=== PATIENT | female | born 1960 | race Hispanic/Latino ===

== ENCOUNTER 2016-07-26 11:59 | Emergency (ER) | payer MEDICAID ==
[2016-07-26 12:05] VITALS: BMI 38.9
[2016-07-26 12:06] VITALS: PULSE 78; RESP 19; TEMP 97.5; O2SAT 96
--- NOTE | 2016-07-26 13:34 | RAD ---
PROCEDURE: Right Knee Radiographs. HISTORY: pain COMPARISON: None. FINDINGS: BONES: There is no acute fracture or bone destruction. Bone alignment and mineralization are normal. There is a small superior patellar enthesophyte. JOINTS: Normal. No osteoarthritis. JOINT EFFUSION: There is small suprapatellar joint effusion. OTHER FINDINGS: None. IMPRESSION: No acute fracture or dislocation. Small suprapatellar joint effusion.
[2016-07-26 14:10] VITALS: BP 152/86
--- NOTE | 2016-07-26 14:19 | ED PDOC ---
Lower Extremity Pain/Injury Time Seen by Provider: 07/26/16 12:23 Chief Complaint (Nursing): Lower Extremity Problem/Injury Chief Complaint (Provider): knee pain History Per: Patient Additional Complaint(s): pt c/o R knee pain since moving apartments this . no fall or injury. no fever, redness, numbness, weakness distally or other joint aches. Past Medical History Reviewed: Historical Data, Nursing Documentation, Vital Signs Vital Signs: Last Vital Signs Temp 97.5 F L 07/26/16 12:05 Pulse 78 07/26/16 12:05 Resp 19 07/26/16 12:05 BP 152/86 H 07/26/16 14:10 Pulse Ox 96 07/26/16 12:05 - Medical History PMH: No Chronic Diseases - Surgical History Surgical History: Tonsillectomy - Family History Family History: States: No Known Family Hx - Social History Current smoker - smoking cessation education provided: No Alcohol: None Drugs: Denies - Home Medications Home Medications: Ambulatory Orders Medication Instructions Recorded Naproxen [Naprosyn Tab] 375 mg PO BID #20 tab 07/26/16 - Allergies Allergies/Adverse Reactions: Allergies Allergy/AdvReac Type Severity Reaction Status Date / Time No Known Allergies Allergy Verified 07/26/16 12:16 Review of Systems ROS Statement: Except As Marked, All Systems Reviewed And Found Negative Musculoskeletal: Positive for: Leg Pain Physical Exam - Reviewed Nursing Documentation Reviewed: Yes Vital Signs Reviewed: Yes - Physical Exam Appears: Positive for: Well, Non-toxic, No Acute Distress Skin: Positive for: Normal Color, Warm, DRY Extremity: Positive for: Other (R knee tender medially. small effusion. no errythema, warmth, crepitis, laxity. painful Rom at 170, 90. n/ vintact distally. other extremities wnl.) Neurologic/Psych: Positive for: Alert, Oriented. Negative for: Motor/Sensory Deficits - ECG O2 Sat by Pulse Oximetry: 96 Medical Decision Making Medical Decision Making: R knee xray read as neg. will conrad, refer to ortho prn. Disposition - Clinical Impression Clinical Impression: Knee sprain - Patient ED Disposition Is Patient to be Admitted: No - Disposition Referrals: Estelita Tapia MD [Staff Provider] - Disposition: Routine/Home Disposition Time: 14:19 Condition: GOOD Prescriptions: Naproxen [Naprosyn Tab] 375 mg PO BID #20 tab Instructions: Knee Sprain (ED), Hypertension (ED) Forms: [facility] School/Work Excuse
== END 2016-07-26 14:10 | disposition home or self-care (01) ==
LOC: H.ER 11:59
DX: S83.91XA Sprain of unspecified site of right knee, initial encounter (principal); X50.0XXA Overexertion from strenuous movement or load, initial encounter